=== PATIENT | female | born 2005 | race Caucasian/White ===

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

== ENCOUNTER 2025-03-16 06:54 | Observation (INO) | payer MEDICAID, OTHER ==
[~2025-03-16 06:54] MED LIST: CYCL-839 PO; IBUP1TAB5 PO
[2025-03-16 08:35] LABS: Hematocrit 36.0 % (36.0-46.0); Hemoglobin 12.2 g/dL (12.2-16.2); Mean Corpuscular Hemoglobin 29.1 pg (28.0-32.0); Mean Corpuscular Volume 85.9 fL (80.0-100.0); Nucleated Red Blood Cells % 0.0 %
[2025-03-16 08:48] LABS: Alanine Aminotransferase 10 U/L (7-40); Albumin 3.5 g/dL (3.2-4.8); Anion Gap 8 (5-15); BUN/Creatinine Ratio 12.5 (10.0-20.0); Calcium 9.1 mg/dL (8.7-10.4); Carbon Dioxide 22 mmol/L (20-31); Glucose 76 mg/dL (74-106); INR 0.86 (0.9-1.15); Partial Thromboplastin Time 29.1 SEC (24.5-34.5); Potassium 3.8 mmol/L (3.5-5.1); Prothrombin Time 9.3 sec (9.3-11.8); Sodium 138 mmol/L (136-145); Total Protein 5.7 g/dL (5.7-8.2)
[2025-03-16 08:49] LABS: Bilirubin, Total 0.3 mg/dL (0.2-1.0)
[2025-03-16 08:52] LABS: Alkaline Phosphatase 182 U/L (46-116); Blood Urea Nitrogen 7 mg/dL (9-23); Chloride 108 mmol/L (98-107)
[2025-03-16 09:14] LABS: Uric Acid 3.8 mg/dL (3.1-7.8)
[2025-03-16 09:19] LABS: Urine Protein, UAD TRACE (Negative)
[2025-03-16 09:33] LABS: Protein, Urine 45.2 mg/dL (1-14)
[2025-03-16 09:36] LABS: Amphetamine Screen, Urine Neg (NEGATIVE); Barbiturate Scree,Urine Neg (NEGATIVE); Benzodiazephine Screen, Urine Neg (NEGATIVE); Cocaine Screen, Urine Neg (NEGATIVE); Opiate Scree,Urine Neg (NEGATIVE)
[2025-03-16 09:42] LABS: Cannabinoid Screen, Urine Neg (NEGATIVE); Phencyclidine Screen, Urine Neg (NEGATIVE)
[2025-03-17] MEDS ORDERED: DOCU-94 PO (19:21)
[2025-03-17] MEDS ORDERED: IBUP-1456 PO (19:21)
--- NOTE | 2025-03-21 15:28 | DVHDS2 ---
Physician Discharge Progress N Final Diagnosis: contractions ,labor check Operations or Procedures: Operations or Procedures nst reactive reviwed,sono Condition on Discharge: Good Disposition: Home Discharge Instructions: Diet: Regular Activity: No Restrictions, As Tolerated Medications: na Follow Up Care: Specialist: 2d Discharge Statement: "Patient was advised to return to the ER or call 911 if any headaches, dizziness, shortness of breath, chest pain, abdominal pain, bleeding, fevers, or worsening of medical condition. Patient was counseled about treatment plan, medications, possible side effects, patientverbalized understanding. All questions were answered to the best of my ability. This discharge took greater then 30 minutes in planning, reviewing documentation, counseling the patient, and discussing with other team members." Visit Coding OBGYN Date of Service: Mar 16, 2025 Billing Provider: HUNG QUINTANA DO SAFETY COORDINATOR Common Visit Codes: [id number]-[id number] OBS CARE (HIGH) SAFETY COORDINATOR Procedure Codes: 41326-26- NON-STRESS TEST HUNG QUINTANA DO Mar 21, 2025 15:28
== END 2025-03-16 10:41 | disposition home or self-care (01) ==
LOC: LDRP 06:54
PROVIDERS: ADMIT Obstetrics & Gynecology; ATTEND Obstetrics & Gynecology
DX: O62.9 Abnormality of forces of labor, unspecified (principal); R79.1 Abnormal coagulation profile; Z3A.39 39 weeks gestation of pregnancy; Z79.899 Other long term (current) drug therapy
CPT/HCPCS: 36415; 59025; 80053; 80307; 81001; 81002; 82570; 84156; 84550; 85025; 85610; 85730; 94760; G0378

== ENCOUNTER 2025-03-16 21:13 | Inpatient (IN) | payer MEDICAID ==
[~2025-03-16] VITALS: Ht 172.7 cm; Wt 110.7 kg
[2025-03-16] MEDS ORDERED: ONDANSETRON HCL 4 MG/2 ML VIAL IV PRN (23:15)
[2025-03-16] MEDS ORDERED: LIDOCAINE 2%HCL (LOCAL ANESTH.) INJ 20ML MDV IJ PRN (23:15)
[2025-03-16] MEDS: PHISODERM TOP SOLN 240ML BTL TOP PRN (23:46)
[2025-03-16] MEDS: WITCH HAZEL-GLYCERIN PAD TOP PRN (23:46)
[2025-03-16] MEDS: DERMOPLAST 60ML BOTTLE TOP PRN (23:46)
[2025-03-16] MEDS: LACTATED RINGER'S 1,000 ML IV SCH (23:49)
--- NOTE | 2025-03-16 23:56 | DVHHP2 ---
OB CC & HPI Date Date of Admission: Mar 16, 2025 Patient Identification: : 1 Para: 0 EDC: Mar 21, 2025 EGA: 39w2d Chief Complaints: Reason for admission: induction of labor Indication for induction: medical complication Other reason for admission: ruled in for pre-eclampsia without severe features. History of Present Complaints Patient presents to triage for labor check, stating she is feeling contractions non stop. They have persisted all day and she feels she is unable to rest, rating them 9/10 on the pain scale. Denies leaking fluid, denies vaginal bleeding, states positive movement. Denies headache, blurry vision, or epigastric pain. Past Medical History Cardiac: No pertinent Hx Pulmonary: No pertinent Hx Central Nervous System: No pertinent Hx GI: No pertinent Hx Hemotology/Oncology: No pertinent Hx Hepatobiliary: No pertinent Hx Psychiatric: No pertinent Hx Musculoskeletal: No pertinent Hx Rheumotologic: No pertinent Hx Infectious Disease: Bacterial vaginosis (hx. recurrent yeast and BV during ), Chladmydia (treated. GEORGINA normal on 01/06/25) ENT: No pertinent Hx Renal/: No pertinent Hx Endocrine: No pertinent Hx Dermatology: No pertinent Hx Past Surgical History: No pertinent Hx OB History OB History Care: Good Care Ultrasounds: Normal mid trimester US Obstetrical Complications: Pre-eclampsia Medical Complications: None Allergies: Coded Allergies: NO KNOWN ALLERGIES (Unverified , 09/11/13) Home Meds Active Scripts Cyclobenzaprine Hcl (Cyclobenzaprine Hcl) 10 Mg Tab, 1 TAB PO Q8HR, #15 TAB As needed for her muscle spasm Prov:SHILPI ERWIN PRIOR AUTHORIZATION NURSE 05/24/23 Ibuprofen Micronized (Ibuprofen) 600 Mg Tab, 1 TAB PO Q6HR, #20 TAB as needed for pain Prov:SHILPI ERWIN Q PRIOR AUTHORIZATION NURSE 05/24/23 Home Meds vitamins Current Medications vitamins Family & Social History Family/Social History Blood Type: A+ Rubella: immune RPR/VDRL: Negative GBS Status: Negative HBsAG: Negative Review of Systems Constitutional: No symptom reported Ears, Nose, & Throat: No symptom reported Eyes: No symptom reported Pulmonary/Respiratory: No symptom reported Cardiovascular: No symptom reported Gastrointestinal: No symptom reported Genitourinary: No symptom reported Musculoskeletal: No symptom reported Skin: No symptom reported Psychiatric: No symptom reported Endocrine: No symptom reported Hemotologic/Lymphatic: No symptom reported OB Admission Exam Physical Exam Heart: Rhythm Normal Lungs: Clear Abdomen: Gravid Extremities: Normal Reflexes: Normal Cervical Dilatation: 2cm Effacement: Other (70) Station: -2 Membranes: Intact Heart Rate: 130's Accelerations: Accelerations Present Decelerations: No Decelerations Longterm Variability: Average (6-25) Contractions on Admission: 6-10 Minutes Apart Date/Time Contractions Began: 03/16/25 @ 0100 Frequency of Contractions: irregular on monitor. pt reports "nonstop" Intensity: Mild OB Plan Plan Admitting Diagnosis: IOL: pre-eclampsia without severe features. Plan: Induction Induction Methd: Misoprostol protocol Other Plan: Co-managed and discussed plan with Dr. Hebert. agrees with POC to admit and induce with miso 50mcg q 4 hours Visit Coding OBGYN Date of Service: Mar 16, 2025 Billing Provider: A FLYING II INSTRUCTOR Common Visit Codes: 08781-[id number] OBS CARE (HIGH) MONET GOMEZ CNM Mar 16, 2025 23:56
[2025-03-17 00:13] LABS: Hematocrit 37.8 % (36.0-46.0); Hemoglobin 12.8 g/dL (12.2-16.2); Mean Corpuscular Hemoglobin 29.2 pg (28.0-32.0); Mean Corpuscular Volume 86.0 fL (80.0-100.0); Nucleated Red Blood Cells % 0.0 %
[2025-03-17 00:31] LABS: Alanine Aminotransferase 11 U/L (7-40); Albumin 3.8 g/dL (3.2-4.8); Anion Gap 10 (5-15); BUN/Creatinine Ratio 15.1 (10.0-20.0); Bilirubin, Total 0.3 mg/dL (0.2-1.0); Calcium 8.7 mg/dL (8.7-10.4); Carbon Dioxide 21 mmol/L (20-31); Glucose 100 mg/dL (74-106); Potassium 3.6 mmol/L (3.5-5.1); Sodium 139 mmol/L (136-145); Total Protein 6.3 g/dL (5.7-8.2); Uric Acid 3.8 mg/dL (3.1-7.8)
[2025-03-17 00:51] LABS: Alkaline Phosphatase 205 U/L (46-116); Blood Urea Nitrogen 8 mg/dL (9-23); Chloride 108 mmol/L (98-107)
[2025-03-17] MEDS: NALBUPHINE HCL 10 MG/1ml INJECTION IV PRN (02:45)
[2025-03-17] MEDS ORDERED: LACT. RINGERS/OXYTOCIN 20UNITS 500 ML IV ONE (03:30)
[2025-03-17] MEDS ORDERED: TERBUTALINE SULFATE 1 MG/ML 1ML VIAL SC PRN (04:30)
[2025-03-17] MEDS ORDERED: LACT. RINGERS/OXYTOCIN 20UNITS 1,000 ML IV SCH (04:30)
--- NOTE | 2025-03-17 07:08 | DVHPN2 ---
Chief Complaints Patient reports: No new complaints Nursing reports: No new complaints Objective Vitals Vital Signs Date Time Temp Pulse Resp B/P (MAP) Pulse Ox O2 Delivery O2 Flow Rate FiO2 03/17/25 02:45 80 20 144/86 Medications Current Medications Medications (Trade) Dose Ordered Sig/Imtiaz Route PRN Reason Start Time Stop Time Status Last Admin Benzocaine (Dermoplast) 1 applic PRN PRN TOP PERINEAL AREA DISCOMFORT 03/16/25 23:15 03/16/25 23:46 Lactated Ringer's 1,000 ml @ 125 mls/hr Q8H IV 03/16/25 23:15 03/17/25 06:23 Lidocaine HCl (Xylocaine) 20 ml ONCE PRN IJ PERINEAL AREA DISCOMFORT 03/16/25 23:15 Misoprostol (Cytotec) 50 mcg Q4HPRN PRN PO CERVICAL RIPENING 03/16/25 23:15 03/17/25 04:37 Nalbuphine HCl (Nubain) 10 mg Q4HP PRN IV MODERATE PAIN (4-6 PAIN SCALE) 03/16/25 23:15 03/17/25 02:45 Ondansetron HCl (Zofran) 4 mg Q6HPRN PRN IV NAUSEA / VOMITING 03/16/25 23:15 Oxytocin 1,000 ml @ 6 ml/hr Q24H IV 03/17/25 04:30 Sodium Lauryl Sulfate (Phisoderm) 240 ml PRN PRN TOP PERINEAL AREA DISCOMFORT 03/16/25 23:15 03/16/25 23:46 Terbutaline Sulfate (Brethine Inj) 0.25 mg ONCE PRN SC Uterine tachysystole 03/17/25 04:30 Witch Morena (Tucks) 1 pad PRN PRN TOP PERINEAL AREA DISCOMFORT 03/16/25 23:15 03/16/25 23:46 Others ve-unchanged Studies Laboratory Tests 03/16/25 23:47 Test 03/16/25 23:47 Range/Units Serum Glucose 100 74-106 mg/dL Ass/Plan Assessment iol Plan awaiting epidural start pitocin Visit Coding OBGYN Date of Service: Mar 17, 2025 Billing Provider: HUNG QUINTANA DO FINISHING ROOM OPERATOR Common Visit Codes: [id number] INP/OBS CARE(HIGH) FINISHING ROOM OPERATOR Procedure Codes: 60471-52- NON-STRESS TEST HUNG QUINTANA DO Mar 17, 2025 07:08
[2025-03-17] MEDS ORDERED: LACTATED RINGER'S 1,000 ML IV ONE (09:30)
[2025-03-17] MEDS: LACT. RINGERS/OXYTOCIN 20UNITS 500 ML IV ONE (13:00)
--- NOTE | 2025-03-17 13:00 | LDN2 ---
Labor and Delivery Note Date 03/17/25 Age 19 1 Para 1 EDC 03/21/2025 EGA 39w3d Diagnosis IOL-PIH Vaginal Delivery: VTX Vacuum Assisted: No Placenta: Spontaneous Sex: Male Nuchal Cord Transected: Yes (nuchal x1. reduced) Amniotic Fluid: Clear Anesthesia epidural Episiotomy: No Extension: Yes (bilateral labial, periurethral, 1st degree laceration) Repaired with 2-0 chromic EBL 300mL Labs Blood Bank 03/16/25 23:47: Blood Type A POSITIVE Complications None Conditions stable Comments/Significant Med Babita speculum exam showed no cervical laceration. uterus not atonic. Visit Coding OBGYN Date of Service: Mar 17, 2025 Billing Provider: MONET GOMEZ CNM MEAT PACKER Common Visit Codes: [id number] OBS CARE (HIGH) MEAT PACKER Procedure Codes: 41894-CXF DELIVERY ONLY MONET GOMEZ CNM Mar 17, 2025 13:00
[2025-03-17] MEDS: ROPIVACAINE HCL 100 ML ONE (13:05)
[2025-03-17] MEDS ORDERED: ONDANSETRON ODT 4 MG TAB PO PRN (13:30)
[2025-03-17] MEDS: IBUPROFEN 600 MG TAB PO PRN (15:16)
[2025-03-17 18:45] VITALS: BP 138/83; PULSE 72; RESP 18; TEMP 98.4; O2SAT 98
[2025-03-17] MEDS ORDERED: DOCU-94 PO (19:21)
[2025-03-17] MEDS ORDERED: IBUP-1456 PO (19:21)
[2025-03-17] MEDS: DOCUSATE SOD 100 MG CAP PO SCH (23:14)
--- NOTE | 2025-03-17 23:25 | DVHPN2 ---
Progress Note Date Seen: Mar 17, 2025 Subjective Brief Hx & Hosp Course Admitted on 03/16/25 at 38w2d EGA for IOL d/t pre-eclampsia without severe features. Induction process started with PO misoprostol and patient then had an uneventful labor, got labor epidural for pain relief. She progressed to 2nd stage of labor and had a . Lacerations repaired in the usual fashion ( See Delivery Note for details) Normal course; meeting milestones w/o any problem or complications. S: Lochia minimal Tolerating regular diet well. Ambulating and voiding well w/o feeling lightheaded or dizzy. Breast feeding and bottle feeding. vital signs Vital Sign Date Time Temp Pulse Resp B/P (MAP) Pulse Ox O2 Delivery O2 Flow Rate FiO2 03/17/25 02:45 80 20 144/86 medications Current Medications Medications Dose Ordered Sig/Imtiaz Route Start Time Stop Time Status Last Admin Dose Admin Sonya Berg 1 pad PRN PRN TOP 03/16/25 23:15 03/16/25 23:46 1 PAD Sodium Lauryl Sulfate 240 ml PRN PRN TOP 03/16/25 23:15 03/16/25 23:46 240 ML Benzocaine 1 applic PRN PRN TOP 03/16/25 23:15 03/16/25 23:46 1 APPLIC Ibuprofen 600 mg Q6HP PRN PO 03/17/25 13:30 03/17/25 15:16 600 MG Acetaminophen 650 mg Q4HP PRN PO 03/17/25 13:30 Ondansetron HCl 4 mg Q4HPRN PRN PO 03/17/25 13:30 Docusate Sodium 200 mg HS PO 03/17/25 22:00 03/17/25 23:14 200 MG laboratory and microbiology Laboratory Tests 03/16/25 23:47 Test 03/16/25 23:47 Range/Units Serum Glucose 100 74-106 mg/dL Objective O: A&O x3 NAD. Afebrile, VSS Chest: heart and lung sounds normal. Breasts: Nipples intact w/o cracks or soreness Abdomen: normal BS, soft, non-tender, no rebound or guarding, fundus firm @ U- 1, lochia minimal Perineum:- mild edema, or erythema, laceration site with sutures intact, edges in good approximation. Extremities: no edema or tenderness Lochia - minimal Assessment/Plan A/P 19 yo now ppd # 0 s/p doing well. Blood Type: A+ Breast feeding and Formula feeding Rubella Immune Pain control with oral medications Bowel regimen: Increase fluid intake and fiber in diet, Laxative PRN Discharge plan: May discharge home later tomorrow if condition remains stable Daily assessment findings will determine when to discharge Plan discussed with: Patient Visit Coding OBGYN Date of Service: Mar 17, 2025 Billing Provider: MONET GOMEZ CNM AIR CONDITIONING MANAGER Common Visit Codes: [id number] INP/OBS CARE(MOD) MONET GOMEZ CNM Mar 17, 2025 23:25
[2025-03-17 23:30] VITALS: BP 132/80; PULSE 71; RESP 18; TEMP 98.2; O2SAT 98
[2025-03-18] MEDS: ACETAMINOPHEN 325 MG TAB PO PRN (01:51)
--- NOTE | 2025-03-18 06:45 | DVHDS2 ---
Obstetrics Discharge Summary Obstetrics Discharge Summary Date of Admission: Mar 16, 2025 Date of Discharge: Mar 18, 2025 Reason For Admission: Induction of Labor Procedures: NST, Mgmt of Obstetrics Compli Intrapartum Procedures: Spontaneous vaginal deliv Procedures: None Operative Complicat: Laceration (Perineal, bilat labial, periurethral) Discharge Diagnosis: Term -Delivered Discharge Information: Activity (Unrestricted. Advance as tolerated. Balance activities with rest periods No heavy lifting, pushing or straining. Pelvic rest x 6weeks), Diet (Routine regular diet rich in fiber, protein, iron and vitamin C with adequate fluid intake), Medications (Ibuprofen 800mg every 6 hours as needed for pain. Colace as needed for constipation. Continue Vitamin and iron), Instructions ( self care instructions given. emergency signs and symptoms including but not limited to pre-eclampsia precautions and signs of infection, PPH & of PPD reviewed with patient. Follow up with OB Provider in 2 weeks (03/30 @ 10am with Charo THOMSON)), Discharge to (Home), Discarge date (03/18/25) Discharge Care Plan Problem Pain, Knowledge deficit, Risk for infection Goals Pain relieved, Pain controlled Know Self care, Know Condition, Know D/C needs, Know F/U care Remain free of infection, VS WNL Instructions Take Rx medications, Notify MD of any issues, Provide comfort measures, Educate on timing of meds Proper handwashing, S/S to look for Visit Coding OBGYN Date of Service: Mar 18, 2025 Billing Provider: MONET GOMEZ CNM INVESTIGATOR INTERNAL AFFAIRS Common Visit Codes: [id number] INP/OBS CARE(MOD) INVESTIGATOR INTERNAL AFFAIRS Procedure Codes: 74983-[id number] DEL INCLUDING MONET GOMEZ CNM Mar 18, 2025 06:45
--- NOTE | 2025-03-18 06:57 | DVHDS2 ---
ASSESSMENT ASSESSMENT Hospital Course Admitted on 03/16/25 at 39w2d EGA for IOL d/t ruled in for pre-eclampsia without severe features. Induction process started with PO misoprostol and patient then had an uneventful labor, got labor epidural for pain relief. She progressed to 2nd stage of labor and had a with a first degree perineal laceration, bilateral labial, and periurethral laceration repaired in the usual fashion ( See Delivery Note for details) Normal course; meeting milestones w/o any problem or complications. Assessment 19yo now ppd#1 s/p doing well. Blood Type: A+ Breast feeding and Formula feeding Rubella Immune Pain control with oral medications ibuprofen and tylenol Bowel regimen: Increase fluid intake and fiber in diet, Laxative PRN PP BCM Plan: Undecided. Would like to discuss LARCs in office Discharge plan: May discharge home later today if condition remains stable Daily assessment findings will determine when to discharge Problems: (1) Vaginal delivery (2) Perineal laceration, first degree MONET GOMEZ CNM Mar 18, 2025 06:57
[2025-03-18 07:00] VITALS: BP 136/88; PULSE 76; RESP 16; TEMP 97.9; O2SAT 97
[2025-03-18 11:00] VITALS: BP 131/75; PULSE 73; RESP 16; TEMP 97.7; O2SAT 96
== END 2025-03-18 14:35 | disposition home or self-care (01) | DRG 560 ==
LOC: LDRP 21:13 → OBSVTOIN 23:01 → LDRP 23:16
PROVIDERS: ADMIT Obstetrics & Gynecology; ATTEND Obstetrics & Gynecology
PROC: 10E0XZZ Delivery of Products of Conception, External Approach (ICD-10-PCS; principal; 2025-03-17)
PROC: 0HQ9XZZ Repair Perineum Skin, External Approach (ICD-10-PCS; 2025-03-17)
PROC: 3E0S3BZ Introduction of Anesthetic Agent into Epidural Space, Percutaneous Approach (ICD-10-PCS; 2025-03-17)
PROC: 00HU33Z Insertion of Infusion Device into Spinal Canal, Percutaneous Approach (ICD-10-PCS; 2025-03-17)
DX: O14.04 Mild to moderate pre-eclampsia, complicating childbirth (principal); Z37.0 Single live birth; O69.81X0 Labor and delivery complicated by cord around neck, without compression, not applicable or unspecified; O70.0 First degree perineal laceration during delivery; O71.82 Other specified trauma to perineum and vulva; Z3A.39 39 weeks gestation of pregnancy
CPT/HCPCS: 36415; 59025; 59409; 62282; 80053; 81002; 84550; 85025; 86780; 86803; 86850; 86900; 86901; 94760; 96360; 96361; 96365; 96366; 96374; G0378; J2590